=== PATIENT | male | born 1980 | race Caucasian/White ===

== ENCOUNTER 2018-06-11 15:07 | Outpatient (CLI) | payer BC ==
--- NOTE | 2018-06-11 16:52 | RAD ---
THREE VIEWS CERVICAL SPINE: 06/11/18 HISTORY: Tingling in the posterior left lateral neck x2 months. COMPARISON: None. FINDINGS: There is no prevertebral soft tissue swelling. Predental space is normal. Cervical spine vertebral reagan dy height is maintained. No fracture. In the neutral position, there is grade I retrolisthesis of C5 upon C6 and C6 upon C7. On the open mouth projection, lateral masses of C1 and C2 articulate appropriately. Limited evaluatio n of the odontoid process. The base of the dens is intact. On the AP projection, no malalignment. IMPRESSION: Grade I spondylolisthesis as described above. Given symptomology, consider MRI. POS: [facility]
== END 2018-06-11 15:08 | disposition home or self-care (01) ==
LOC: SCSRAD 15:07
PROVIDERS: ATTEND Family Medicine
DX: M54.2 Cervicalgia (principal); R76.8 Other specified abnormal immunological findings in serum; M43.12 Spondylolisthesis, cervical region
CPT/HCPCS: 36415; 72040; 87521